=== PATIENT | male | born 1995 | race Caucasian/White ===

== ENCOUNTER 2016-09-23 05:30 | Emergency (ER) | payer SELFPAY ==
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
[~2016-09-23 05:30] MED LIST: SLEEP MED
== END 2016-09-23 08:08 | disposition home or self-care (01) ==
LOC: CED 05:30
DX: S93.402A Sprain of unspecified ligament of left ankle, initial encounter (principal); S93.602A Unspecified sprain of left foot, initial encounter; F17.210 Nicotine dependence, cigarettes, uncomplicated; Z79.899 Other long term (current) drug therapy; V43.62XA Car passenger injured in collision with other type car in traffic accident, initial encounter
CPT/HCPCS: 73610; 73630; 99283